=== PATIENT | female | born 1955 | race Caucasian/White ===

== ENCOUNTER 2018-05-22 08:52 | Day surgery (SDC) | payer OTHER, SELFPAY ==
[2018-05-04 13:25] VITALS: BMI 47.0
[2018-05-22] VITALS (11 sets, daily range): BP systolic 150–196; BP diastolic 80–112; PULSE 75–96; RESP 11–18; TEMP 36.1–36.3; O2SAT 94–97; BMI 47.0
--- NOTE | 2018-05-22 | PATH_ITS ---
[facility] Accession Number: [id number] . 01 Material submitted: . ENDOMETRIAL CURETTINGS AND POLYP . 02 Diagnosis: Endometrial Curettings and Polyp: Fragments of benign endometrial polyp, negative for atypia. Fragments of myometrium, negative for atypia. Fragments of endometrial surface epithelium, negative for atypia. V/05/25/2018 . 02 Electronically signed: . Chester Baptiste MD, Pathologist NPI- [id number] . 01 Gross description: . Received one formalin-filled container labeled with the patient's name and labeled EMC plus polyp. The specimen consists of approximately a 1.75 cc aggregate of tissue, mucoid material, and blood, which is filtered, wrapped, and entirely submitted in one cassette. ([id number]) /FRR . 02 Pathologist provided ICD-10: N84.0 . 02 CPT . 130792 Performed at: 01 [facility] [address] [facility], [place], [place] [id number] MD Gus Angel MD Phone: [phone] Performed at: 02 [facility] [address] [place], [place] [id number] MD Raman Moore MD Phone: [phone]
--- NOTE | 2018-05-22 10:00 | PM.PREOP ---
Pre-operative Note Interval Note Pre-op Check: Yes History & Physical Reviewed by Physician and Yes Exam Performed Changes: No H&P completed within 30 days and has changed as indicated here:: see 05/15/18 out patient note
--- NOTE | 2018-05-22 10:27 | SUR.OPER ---
Lithotomy on padded OR bed, head on pillow, arms secured on padded arm boards at <90 degrees abduction. Legs secured in padded yellow fins stirrups.
[2018-05-22] MEDS: LACTATED RINGERS 1,000 ML 42 ML IV (10:30)
--- NOTE | 2018-05-22 10:53 | PM.OP.1 ---
Operative Date/Time/Diagnoses Date of procedure: 05/22/18 Time of procedure: 10:53 Pre-op diagnosis: Postmenopausal bleeding, thickened endometrium on ultrasound Post-op diagnosis: same Procedure & Clinicians Procedure: Hysteroscopy with resection of polyps, endometrial curettage Same procedure as scheduled: Yes Surgeon: Joan Tenorio Click Yes if Unassisted: Yes Anesthesia Type: General Operative Notes Closure Type: not applicable Specimen(s): other (Polyps and uterine curettage) Estimated Blood Loss (mL): 15 Blood products transfused: none Procedure in detail: The patient was brought to the operating room where she underwent general anesthesia. She was placed in low stirrups She was prepped and draped in usual sterile fashion with pulsatile stockings in place and functional, warming in place, antibiotics in prior to beginning the case. Her bladder was drained with in and out catheter. A single-tooth tenaculum was placed on the anterior lip of the cervix and the uterus dilated to #8 Hegar dilator. The hysteroscope was placed into the uterus with a sorbitol solution running and under constant suction. The resecting loop set at 100 W of cutting was used to resect the polyps down to endometrium. A endometrial curettage was performed. The polyps and the endometrial curettage was sent to pathology. The patient went to recovery room in good condition counts of instruments and sponges were correct. The sorbitol solution I=O approximately 2000 mL. Complications: none Condition: stable Disposition: same day surgery Plan for aftercare: Nothing in vagina for 1 week then follow-up in 2 weeks
[2018-05-22] MEDS: KETOROLAC 30 MG/ML VIAL IV (10:56)
[2018-05-22] MEDS: fentaNYL 100 MCG/2 ML INJ 50 MCG IV (11:05)
--- NOTE | 2018-05-22 11:07 | SUR.PHASEI ---
pt awakened, c/o pain, medicated with torodol and fentanyl. bp high dr pierce aware, no new treatment.
[2018-05-22] MEDS: OXYCODONE/ACETAMINOPHEN 5/325 TABLET 1 TAB PO (11:16)
--- NOTE | 2018-05-22 11:23 | SUR.PHASEI ---
zena pad with spotting bloody drainage, cramps better, pain down to a 1/10
== END 2018-05-22 11:48 | disposition home or self-care (01) ==
PROVIDERS: Visit Provider Specialist
PROC: 0UDB8ZZ Extraction of Endometrium, Via Natural or Artificial Opening Endoscopic (ICD-10-PCS; CPT 58558; principal; 2018-05-22 10:00)
DX: N95.0 Postmenopausal bleeding (principal); N84.0 Polyp of corpus uteri; R93.8 Abnormal findings on diagnostic imaging of other specified body structures; E66.01 Morbid (severe) obesity due to excess calories; Z68.42 Body mass index [BMI] 45.0-49.9, adult
CPT/HCPCS: 58558; J1100; J1885; J2250; J2405; J3010